=== PATIENT | male | born 1940 | race Caucasian/White ===

== ENCOUNTER 2017-09-08 09:15 | Emergency (ER) | payer OTHER ==
[2017-09-08 09:22] VITALS: BP 170/70; TEMP 98; BMI 21.9
--- NOTE | 2017-09-08 10:11 | DI ---
Exam: Four views of the left femur. Comparison: None available. Reason for exam: Trauma. FINDINGS: No acute fracture or malalignment. The cortices are intact. No unexplained calcific soft tissue density or radiopaque retained foreign body. Vascular clips are seen in the soft tissues. Impression: No acute fracture or malalignment is seen in the left femur.
--- NOTE | 2017-09-08 10:29 | US ---
EXAM: Left lower extremity venous Doppler History: Left lower extremity trauma and bruising. Technique: Multiple sonographic images through the left lower extremity were obtained. Color duplex Doppler was used to interrogate vascular flow. Findings: The left common femoral, greater saphenous, profunda, superficial femoral, popliteal, carmen lazaro, posterior tibial and anterior tibial veins demonstrate spontaneous flow with normal compression and normal augmentation. Impression: No sonographic evidence for deep venous thrombosis.
--- NOTE | 2017-09-08 10:31 | ED.PDOC ---
General ED Provider: Dr. ISRAEL ELLINGTON Chief Complaint: Extremity Pain/Injury Stated Complaint: brusing on the middle left thigh since last monday. pt reports that a metal pole hit his thigh, since then he has noticed brusing and pain, but was able to bear weight Time Seen by Physician: 09:19 Mode of Arrival: Walk-In Information Source: Patient Exam Limitations: No limitations Primary Care Provider: CATRACHITO SOTO Nursing and Triage Documentation Reviewed and Agree: Yes Reviewed sepsis parameters & appropriate labs ordered?: Yes System Inflammatory Response Syndrome: Not Applicable Sepsis Protocol: For patient's 13 years and over: Temp is 96.8 and below OR 101 and greater Pulse >90 BPM Resp >20/minute Acutely Altered Mental Status Are patient's symptoms suggestive of a new infection, such as: -Pneumonia -Skin, Soft Tissue -Endocarditis -UTI -Bone, Joint Infection -Implantable Device -Acute Abdominal Infection -Wound Infection -Meningitis -Blood Stream Catheter Infection -Unknown System Inflammatory Response Syndrome: Not Applicable Musculoskeletal Complaint Exam - Lower Extremity Complaint/Exam Location of Pain: Reports: Left, Thigh Mechanism of Injury: Reports: Trauma Onset/Duration: 7 days Symptoms Are: Still present Onset of Pain: Reports: Immediate Initial Severity: Mild Current Severity: Mild Location: Reports: Diffuse Alleviating: Reports: None Aggravating: Reports: None Able to Bear Weight: Yes Associated Signs and Symptoms: Reports: Bruising DVT Risk Factors: Reports: None Septic Arthritis Risk Factors: Reports: None Related Surgical History: Reports: None NV Bundle Intact Distal to Injury: Yes Alanna's Sign Present: No Differential Diagnoses: DVT, Strain, Sprain Review of Systems - Review Of Systems Constitutional: Reports: No symptoms Eyes: Reports: No symptoms Ears, Nose, Mouth, Throat: Reports: No symptoms Respiratory: Reports: No symptoms Cardiac: Reports: No symptoms GI: Reports: No symptoms : Reports: No symptoms Musculoskeletal: Reports: Other (brusing left tigh) Skin: Reports: No symptoms Neurological: Reports: No symptoms Endocrine: Reports: No symptoms Hematologic/Lymphatic: Reports: No symptoms All Other Systems: Reviewed and Negative Past Medical History - Past Medical History Previously Healthy: Yes Endocrine: Reports: Dyslipidemia Cardiovascular: Reports: Hypertension Respiratory: Reports: None Hematological: Reports: None Gastrointestinal: Reports: None Genitourinary: Reports: None Neuro/Psych: Reports: None Musculoskeletal: Reports: None Cancer: Reports: None - Surgical History General Surgical History: Reports: None - Family History Family History: Reports: None - Social History Smoking Status: Never smoker Hx Substance Use: No Alcohol Screening: Heavy Physical Exam - Physical Exam Appearance: Well-appearing, No pain distress, Well-nourished Eyes: MARI, EOMI, Conjunctiva clear ENT: Ears normal, Nose normal, Oropharynx normal Respiratory: Airway patent, Breath sounds clear, Breath sounds equal, Respirations nonlabored Cardiovascular: RRR, Pulses normal, No rub, No murmur GI/: Soft, Nontender, No masses, Bowel sounds normal, No Organomegaly Musculoskeletal: Normal strength, ROM intact, No edema, No calf tenderness Skin: Warm, Dry (brusing left tigh see photos) Neurological: Sensation intact, Motor intact, Reflexes intact, Cranial nerves intact, Alert, Oriented Psychiatric: Affect appropriate, Mood appropriate Critical Care Note - Critical Care Note Total Time (mins): 0 Course - Course Orders, Labs, Meds: Lab Review 09/08/17 09:55 PT 36.0 H INR 3.74 Orders Category Date Time Status PT WITH INR Stat LAB 09/08/17 09:55 Completed FEMUR, LEFT 2 VIEWS Stat RADS 09/08/17 09:41 Completed U/S VENOUS SCAN LT. LEG Stat RADS 09/08/17 09:41 Ordered Vital Signs: Temp Pulse Resp BP Pulse Ox 09/08/17 09:17 98.0 F 99 H 18 170/70 H 98 Departure - Departure Time of Disposition: 10:35 Disposition: HOME SELF-CARE Discharge Problem: Injury of lower extremity Instructions: Contusion in Adults (ED) Condition: Good Pt referred to PMD for follow-up: Yes IPMP verified?: No Additional Instructions: Please call your Family Physician as soon as possible to schedule a follow-up appointment. Allergies/Adverse Reactions: Allergies bupropion [From Wellbutrin] Adverse Reaction (Verified 09/08/17 09:22) Nausea Home Medications: Ambulatory Orders Aspirin [Aspirin Chewable] 81 mg PO DAILYWM 09/08/17 Atorvastatin Calcium 40 mg PO DAILY 09/08/17 Azelastine HCl [Astelin 0.1%] 1 spray NS BID 09/08/17 Enalapril Maleate [Vasotec] 5 mg PO DAILY 09/08/17 Metoprolol Succinate [Toprol Xl] 25 mg PO DAILY 09/08/17 Multivitamin with Minerals [Multiple Vitamin] 1 each PO DAILY 09/08/17 Sildenafil Citrate [Viagra] 100 mg PO PRN PRN 09/08/17 Warfarin Sodium [Coumadin] 3 mg PO SUMOWEFR 09/08/17 Warfarin Sodium [Coumadin] 4.5 mg PO TUTHSA 09/08/17 Disposition Discussed With: Patient, Family
== END 2017-09-08 10:55 | disposition home or self-care (01) ==
LOC: ED 09:15
DX: S70.12XA Contusion of left thigh, initial encounter (principal); M79.652 Pain in left thigh; W22.8XXA Striking against or struck by other objects, initial encounter; Z79.01 Long term (current) use of anticoagulants; Z79.899 Other long term (current) drug therapy
CPT/HCPCS: 36415; 85610; 99283